=== PATIENT | male | born 1980 | race African-American/Black ===

== ENCOUNTER 2020-07-10 08:44 | Emergency (ER) | payer MEDICAID ==
[~2020-07-10] VITALS: Ht 177.8 cm; Wt 80.0 kg
[2020-07-10 08:46] VITALS: BP 153/108
== END 2020-07-10 09:50 | disposition left against medical advice (07) ==
LOC: ER 08:44
DX: S13.4XXA Sprain of ligaments of cervical spine, initial encounter (principal); V49.49XA Driver injured in collision with other motor vehicles in traffic accident, initial encounter; J45.909 Unspecified asthma, uncomplicated; H40.9 Unspecified glaucoma; Y93.89 Activity, other specified; Y92.488 Other paved roadways as the place of occurrence of the external cause
CPT/HCPCS: 99283

== ENCOUNTER 2020-07-10 12:03 | Emergency (ER) | payer MEDICAID ==
[~2020-07-10] VITALS: Ht 180.3 cm; Wt 82.0 kg
[2020-07-10 14:28] VITALS: BP 131/92
== END 2020-07-10 14:25 | disposition home or self-care (01) ==
LOC: ER 12:03
DX: S13.4XXA Sprain of ligaments of cervical spine, initial encounter (principal); S29.012A Strain of muscle and tendon of back wall of thorax, initial encounter; M25.512 Pain in left shoulder; V49.49XA Driver injured in collision with other motor vehicles in traffic accident, initial encounter; Y93.89 Activity, other specified; Y92.488 Other paved roadways as the place of occurrence of the external cause; J45.909 Unspecified asthma, uncomplicated; Z98.890 Other specified postprocedural states
CPT/HCPCS: 72050; 73030; 99284

== ENCOUNTER 2020-07-15 16:47 | Emergency (ER) | payer MEDICAID ==
[~2020-07-15] VITALS: Ht 180.3 cm; Wt 82.0 kg
[2020-07-15] MEDS ORDERED: IBUP-2028 PO (18:15)
[2020-07-15] MEDS ORDERED: T3 PO (18:15)
[2020-07-15] MEDS ORDERED: KETOROLAC 60MG/2ML VIAL IM ONE (18:15)
[2020-07-15 18:51] VITALS: BP 163/98
== END 2020-07-15 18:52 | disposition home or self-care (01) ==
LOC: ER 16:47
DX: M54.89 Other dorsalgia (principal); M54.2 Cervicalgia; Z87.828 Personal history of other (healed) physical injury and trauma
CPT/HCPCS: 96372; 99283; J1885